=== PATIENT | female | born 1950 | race Caucasian/White ===

== ENCOUNTER 2018-11-29 07:27 | Emergency (ER) | payer MEDICARE, MEDICAID, SELFPAY ==
[2018-11-29 07:45] VITALS: BP 131/67; PULSE 75; RESP 18; TEMP 37.1; O2SAT 97
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
--- NOTE | 2018-11-29 08:02 | DI.RAD_ITS ---
SYMPTOMS/DIAGNOSIS: PAIN, S/P FALL LEFT WRIST: There is a nondisplaced fracture involving the distal left radius. No other fractures or dislocations are seen. IMPRESSION: Nondisplaced distal left radial fracture.
--- NOTE | 2018-11-29 08:15 | DI.VRAD_ITS ---
EXAM: XR Left Wrist Complete, 3 or more Views EXAM DATE/TIME: 11/29/2018 7:50 AM CLINICAL HISTORY: 68 years old, female; Signs and symptoms; Other: Pain, S/P fall TECHNIQUE: XR Left wrist 3 or more views. COMPARISON: No relevant prior studies available. FINDINGS: There is a nondisplaced fracture of the distal radius. The alignment is normal. No significant joint space narrowing. IMPRESSION: Nondisplaced fracture of the distal left radius. Dictated and Authenticated by: Moisés De Souza MD. Ordering:JALEN Amaro MD
== END 2018-11-29 08:35 | disposition home or self-care (01) ==
PROVIDERS: Emergency Provider Emergency Medicine; PCP Family Medicine
DX: S52.592A Other fractures of lower end of left radius, initial encounter for closed fracture (principal); W00.0XXA Fall on same level due to ice and snow, initial encounter
CPT/HCPCS: 25600; 73110; L3908

== ENCOUNTER 2018-12-03 10:59 | Outpatient (CLI) | payer MEDICARE, MEDICAID, SELFPAY ==
--- NOTE | 2018-12-03 10:55 | DI.RAD_ITS ---
SYMPTOMS/DIAGNOSIS: F/U LT DISTAL RADIUS FX LEFT WRIST: Comparison is made with [id number]. There has been no change in the alignment of the distal radial fracture. No new abnormalities are seen.
== END 2018-12-03 11:19 ==
PROVIDERS: PCP Family Medicine; Referring Provider Family Medicine; Visit Provider Student in an Organized Health Care Education/Training Program
DX: S52.592A Other fractures of lower end of left radius, initial encounter for closed fracture; W00.0XXA Fall on same level due to ice and snow, initial encounter
CPT/HCPCS: 99204; 99214; 73110; 73200; L3908

== ENCOUNTER 2018-12-10 13:37 | Outpatient (CLI) | payer MEDICARE, MEDICAID, SELFPAY ==
--- NOTE | 2018-12-10 13:34 | DI.RAD_ITS ---
SYMPTOM/DIAGNOSIS: F/U DISTAL RADIUS FX LEFT WRIST: Comparison is made with 12/03/18. The cast has been removed. There has been no change in the alignment when compared with 12/03/18. No new abnormalities are seen.
== END 2018-12-10 13:57 ==
PROVIDERS: PCP Family Medicine; Referring Provider Family Medicine; Visit Provider Student in an Organized Health Care Education/Training Program
DX: S52.592D Other fractures of lower end of left radius, subsequent encounter for closed fracture with routine healing (principal)
CPT/HCPCS: 29075; 99213; Q4010; 73100; 73110

== ENCOUNTER 2018-12-10 14:14 | Outpatient (CLI) | payer MEDICARE, MEDICAID, SELFPAY ==
--- NOTE | 2018-12-10 14:18 | DI.RAD_ITS ---
SYMPTOM/DIAGNOSIS: F/U WRIST FX, S/P CASTING AND REDUCTION LEFT WRIST: Two views were performed. Comparison is made with exam performed earlier the same day. A cast has been placed. The cast obscures the bony detail. There is no visible change in fracture alignment.
== END 2018-12-10 14:34 ==
PROVIDERS: PCP Family Medicine; Visit Provider Student in an Organized Health Care Education/Training Program
DX: S52.502D Unspecified fracture of the lower end of left radius, subsequent encounter for closed fracture with routine healing (principal); W00.0XXD Fall on same level due to ice and snow, subsequent encounter
CPT/HCPCS: 29075; 99213; Q4010; 73100

== ENCOUNTER 2018-12-17 10:41 | Outpatient (CLI) | payer MEDICARE, MEDICAID, SELFPAY ==
--- NOTE | 2018-12-17 10:30 | DI.RAD_ITS ---
SYMPTOMS/DIAGNOSIS: F/U LEFT WRIST: Two views. Comparison 12/10/18. The patient's wrist is in a cast which does obscure the underlying bony detail. There has been no change in alignment of the distal radial fracture compared to the prior examination.
== END 2018-12-17 11:01 ==
PROVIDERS: PCP Family Medicine; Referring Provider Family Medicine; Visit Provider Student in an Organized Health Care Education/Training Program
DX: S52.502D Unspecified fracture of the lower end of left radius, subsequent encounter for closed fracture with routine healing (principal); W00.0XXD Fall on same level due to ice and snow, subsequent encounter
CPT/HCPCS: 99213; 73100

== ENCOUNTER 2019-01-07 10:14 | Outpatient (CLI) | payer MEDICARE, MEDICAID, SELFPAY ==
--- NOTE | 2019-01-07 09:52 | DI.RAD_ITS ---
SYMPTOMS/DIAGNOSIS: F/U LEFT DISTAL RADIUS FX LEFT WRIST: Two views were obtained and show a previously described fracture of the distal radius with no gross interval change in alignment in comparison with previous examination of December 17.
== END 2019-01-07 10:34 ==
PROVIDERS: PCP Family Medicine; Referring Provider Family Medicine; Visit Provider Student in an Organized Health Care Education/Training Program
DX: S52.502D Unspecified fracture of the lower end of left radius, subsequent encounter for closed fracture with routine healing (principal); X58.XXXD Exposure to other specified factors, subsequent encounter
CPT/HCPCS: 29125; 99212; 73100; L3908

== ENCOUNTER 2019-02-11 13:38 | Outpatient (CLI) | payer MEDICARE, MEDICAID, SELFPAY ==
--- NOTE | 2019-02-11 13:35 | DI.RAD_ITS ---
SYMPTOMS/DIAGNOSIS: F/U OF LEFT DISTAL RADIUS FX LEFT WRIST: Two views were obtained and show previously described fracture of the distal radius, which appears to be healing with no change in alignment in comparison with the examination of January 07.
== END 2019-02-11 13:58 ==
PROVIDERS: PCP Family Medicine; Referring Provider Family Medicine; Visit Provider Student in an Organized Health Care Education/Training Program
DX: S52.592D Other fractures of lower end of left radius, subsequent encounter for closed fracture with routine healing (principal); X58.XXXD Exposure to other specified factors, subsequent encounter
CPT/HCPCS: 99212; 99213; 73100

== ENCOUNTER 2019-03-11 10:53 | Outpatient (CLI) | payer MEDICARE, MEDICAID, SELFPAY ==
--- NOTE | 2019-03-11 10:48 | DI.RAD_ITS ---
SYMPTOMS/DIAGNOSIS: FOLLOW UP LT DISTAL RADIUS FRACTURE LEFT WRIST: Two views were obtained and show healing fracture of the distal radius with no gross interval change in alignment of fracture fragments in comparison with examination of 02/11.
== END 2019-03-11 11:13 ==
PROVIDERS: PCP Family Medicine; Referring Provider Family Medicine; Visit Provider Student in an Organized Health Care Education/Training Program
DX: S52.502A Unspecified fracture of the lower end of left radius, initial encounter for closed fracture (principal); X58.XXXA Exposure to other specified factors, initial encounter
CPT/HCPCS: 99213; 73100; L3908

== ENCOUNTER 2019-04-16 02:02 | Outpatient (CLI) | payer MEDICARE, MEDICAID, SELFPAY ==
[2019-04-16 07:49] LABS: Abs Immature Grans 0.02 k/cumm (0.0-0.09); Absolute Basophil Count 0.02 k/cumm (0.0-0.2); Absolute Eosinophil Count 0.05 k/cumm (0.0-0.7); Absolute Monocyte Count 0.51 k/cumm (0.11-0.7); Absolute Neutrophil Count 5.57 k/cumm (1.2-6.7); Basophils % 0.2; Eosinophils % 0.6; HGB 14.7 g/dL (12.0-15.5); Immature Grans % 0.2; Lymphocytes % 28.8; Mean Corp. HGB Concentration 33.4 g/dL (32.0-36.0); Mean Corpuscular Hemoglobin 29.6 pg (27.0-33.0); Mean Corpuscular Volume 88.5 fL (80-95); Mean Platelet Volume 10.6 fL (8.0-11.0); Monocytes % 5.9; Neutrophils % 64.3; Platelet Count 244 x1000/uL (130-400); RBC 4.97 m/cumm (4.00-5.20); RBC Distribution Width 12.9 % (11.7-14.6); White Blood Cell Count 8.67 k/cumm (4.4-10.8)
[2019-04-16 08:37] LABS: ALT 22 U/L (12-78); AST 14 U/L (15-37); Albumin 3.8 g/dL (3.4-5.0); Alkaline Phosphatase 149 U/L (46-116); Anion Gap 10.8 mmol/L (3-11); BUN 23 mg/dL (7-18); Bilirubin, Total 0.2 mg/dL (0.2-1.0); CO2 25.2 mmol/L (21.0-32.0); CREATININE 0.87 mg/dL (0.55-1.02); Calcium 9.3 mg/dL (8.5-10.1); Calculated LDL 180 mg/dL; Chloride 106 mmol/L (98-107); Cholesterol 234 mg/dL (50-200); Glucose 92 mg/dL (70-100); HDL Cholesterol 36 mg/dL (40-60); Potassium 4.1 mmol/L (3.5-5.1); Sodium 142 mmol/L (136-145); TSH (W/Ref FT4) 1.22 uIU/mL (0.358-3.74); Total Protein 6.8 g/dL (6.4-8.2); Triglyceride 92 mg/dL (30-150)
== END 2019-04-16 02:22 ==
PROVIDERS: PCP Family Medicine; Visit Provider Family Medicine
DX: E78.5 Hyperlipidemia, unspecified (principal); R53.82 Chronic fatigue, unspecified; N18.2 Chronic kidney disease, stage 2 (mild)
CPT/HCPCS: 36415; 80053; 80061; 83721; 84443; 85025

== ENCOUNTER 2019-04-22 09:49 | Outpatient (CLI) | payer MEDICARE, MEDICAID, SELFPAY ==
--- NOTE | 2019-04-22 09:58 | DI.RAD_ITS ---
SYMPTOMS/DIAGNOSIS: F/U LT WRIST FRACTURE WITH PAIN LEFT WRIST: Four views. There has been no change in alignment of the healing distal left radial fracture.
== END 2019-04-22 10:09 ==
PROVIDERS: PCP Family Medicine; Referring Provider Family Medicine; Visit Provider Student in an Organized Health Care Education/Training Program
DX: S52.552P Other extraarticular fracture of lower end of left radius, subsequent encounter for closed fracture with malunion (principal); S63.592S Other specified sprain of left wrist, sequela; X58.XXXD Exposure to other specified factors, subsequent encounter
CPT/HCPCS: 99213; L3982; L3995; 73110

== ENCOUNTER 2019-04-29 01:03 | Outpatient (CLI) | payer MEDICARE, MEDICAID, SELFPAY ==
--- NOTE | 2019-04-29 08:46 | DI.CT_ITS ---
SYMPTOM/DIAGNOSIS: CONTINUED PAIN AND MALUNION S52.502A, FRACTURE LOWER END OF RADIUS CT SCAN LEFT WRIST: Multiple contiguous axial images of the left wrist were obtained. Sagittal and coronal reformatted images were evaluated on the [employer] work station Comparison x-ray is 04/22/19. Comparison CT scan is 12/03/18. There has been no change in alignment of the healing distal left radial fracture. The fracture is nearly completely healed. There is a component of the fracture along the dorsal aspect of the articular surface which has not healed but shows well corticated borders suggesting non union (Series 7, Image 123). Alignment of the fracture is stable. No new fractures or dislocations are appreciated. There is a well corticated osseous fragment seen on the dorsum of the wrist adjacent to the capitate and scaphoid bones consistent with an old injury. The soft tissues are unremarkable. IMPRESSION: Stable healed fracture of the distal left radius. Persistence of a portion of the intra-articular component of the fracture at the dorsum of the distal radius. At this point it has well corticated borders suggesting non union/incomplete healing. 2. No new fractures or dislocations. 3. Stable old osseous fragment at the dorsum of the wrist.
== END 2019-04-29 01:23 ==
PROVIDERS: PCP Family Medicine; Visit Provider Student in an Organized Health Care Education/Training Program
DX: M25.532 Pain in left wrist (principal); S52.552P Other extraarticular fracture of lower end of left radius, subsequent encounter for closed fracture with malunion
CPT/HCPCS: 73200